=== PATIENT | female | born 1985 | race Caucasian/White ===

== ENCOUNTER 2020-03-13 11:39 | Emergency (ER) | payer BC ==
--- NOTE | 2020-03-13 11:43 | EDM.PDOC ---
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 She was previously seen at [facility] to confirm her and believes she is approximately 8 weeks with her last menstrual period being December 192019. She woke up this morning to use the bathroom around 2:30 AM and had noticed some blood in the toilet bowl. She continued to have some light spotting throughout the morning when she would wipe. She denies any recent pelvic activity. She states she does have chronic low back pain but denies any new or worsening back pain, abdominal pain or cramping. Patient denies any fever, chills, headache, change in vision, syncope or near syncope. Denies any chest pain, back pain, shortness of breath or cough. Denies any abdominal pain, nausea , vomiting, diarrhea, constipation or dysuria. Has not noted any blood in urine or stool. Patient has been eating and drinking appropriately. 3 para 1. Miscarriage at 6 weeks. Review of systems: As per history of present illness and below otherwise all systems reviewed and negative. Past medical history: As per history of present illness and as reviewed below otherwise noncontributory. Surgical history: As per history of present illness and as reviewed below otherwise noncontributory. Social history: See social history for further information Family history: As per history of present illness and as reviewed below otherwise noncontributory. Physical exam: General: Well-developed and well-nourished 34-year-old female. Alert and oriented. Nontoxic-appearing and in no acute distress. HEENT: Atraumatic, normocephalic, pupils equal and reactive bilaterally, negative for conjunctival pallor or scleral icterus, mucous membranes moist, TMs normal bilaterally, throat clear, neck supple, nontender, trachea midline. No drooling or trismus noted. No meningeal signs. No hot potato voice noted. Lungs: Clear to auscultation, breath sounds equal bilaterally, chest nontender. Heart: S1S2, regular rate and rhythm without overt murmur Abdomen: Soft, nondistended, nontender. Negative for masses or hepatosplenomegaly. Negative for costovertebral tenderness. Pelvis: Stable nontender. OBGYN: A pelvic exam was done with consent by patient and nursing editor city. Normal-appearing external genitalia. Speculum exam shows some old blood in the vaginal vault. Cervical office is closed. No cervical motion tenderness. Patient tolerated fair. Skin: Intact, warm, dry. No lesions or rashes noted. Extremities: Atraumatic, moves all extremities per self without difficulty or deficits, negative for cords or calf pain. Neurovascular unremarkable. Neuro: Awake, alert, oriented. Cranial nerves II through XII unremarkable. Cerebellum unremarkable. Motor and sensory unremarkable throughout. Exam nonfocal. Notes: Patient has an appointment [facility] on Sunday for her initial OBGYN appointment with first trimester labs. Quantitative hCG is 13, 912. Lab work is otherwise unremarkable. Ultrasound shows heterogeneous material within the endometrial complete, with no flow on color Doppler. A suspected failed IUP. Dr. Bentley Cao, OBGYN ring conductor for [facility], was consulted on this case. She states it is okay for the patient to keep her appointment on Sunday and they will reevaluate her at that time. All information was shared with the patient. We discussed signs and symptoms that would prompt her to return to the emergency room. Supportive care measures were reviewed and discussed. Voices understanding and is agreeable to plan of care. Denies any further questions or concerns at this time. Diagnostics: CBC, CMP, UA, hCG quant, AB/RH, transvaginal ultrasound Therapeutics: None Prescription: None Impression: Threatened Miscarriage Plan: 1. Please start and/or continue to take your vitamin with folic acid once daily. 2. Pelvic rest until cleared by your OBGYN (no tampons, sex, etc...) 3. Tylenol as needed for pain management. 4. Follow up with your DIESEL TECHNICIAN MECHANIC, Dr Cheng, on Sunday as you have directed. Return to the ED as needed and as discussed. Definitive disposition and diagnosis as appropriate pending reevaluation and review of above. 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 ED EXAM - Physical Exam Exam: See Below (See dictation) Course - Vital Signs Last Recorded V/S: Last Vital Signs Temp 97.8 F 03/13/20 13:13 Pulse 90 03/13/20 13:52 Resp 16 03/13/20 13:52 BP 129/76 03/13/20 13:52 Pulse Ox 99 03/13/20 13:52 - Orders/Labs/Meds Labs: Laboratory Tests 03/13/20 03/13/20 03/13/20 Range/Units 11:49 12:08 12:08 WBC 9.45 (4.0-11.0) K/uL RBC 4.69 (4.30-5.90) M/uL Hgb 13.5 (12.0-16.0) g/dL Hct 41.3 (36.0-46.0) % MCV 88.1 (80.0-98.0) fL MCH 28.8 (27.0-32.0) pg MCHC 32.7 (31.0-37.0) g/dL RDW Std Deviation 40.6 (28.0-62.0) fl RDW Coeff of Norman 13 (11.0-15.0) % Plt Count 264 (150-400) K/uL MPV 9.00 (7.40-12.00) fL Neut % (Auto) 62.0 (48.0-80.0) % Lymph % (Auto) 26.6 (16.0-40.0) % [place] % (Auto) 9.3 (0.0-15.0) % Eos % (Auto) 1.9 (0.0-7.0) % Baso % (Auto) 0.2 (0.0-1.5) % Neut # (Auto) 5.9 H (1.4-5.7) K/uL Lymph # (Auto) 2.5 H (0.6-2.4) K/uL [place] # (Auto) 0.9 H (0.0-0.8) K/uL Eos # (Auto) 0.2 (0.0-0.7) K/uL Baso # (Auto) 0.0 (0.0-0.1) K/uL Nucleated RBC % 0.0 /100WBC Nucleated RBCs # 0 K/uL Sodium (136-145) mmol/L Potassium (3.5-5.1) mmol/L Chloride (98-107) mmol/L Carbon Dioxide (21.0-32.0) mmol/L BUN (7.0-18.0) mg/dL Creatinine (0.6-1.0) mg/dL Est Cr Clr Drug Dosing mL/min Estimated GFR (MDRD) ml/min Glucose (74-106) mg/dL Calcium (8.5-10.1) mg/dL Total Bilirubin (0.2-1.0) mg/dL AST (15-37) IU/L ALT (14-63) IU/L Alkaline Phosphatase (46-116) U/L Total Protein (6.4-8.2) g/dL Albumin (3.4-5.0) g/dL Globulin (2.6-4.0) g/dL Albumin/Globulin Ratio (0.9-1.6) HCG, Quant mIU/mL Urine Color YELLOW Urine Appearance HAZY Urine pH 7.0 (5.0-8.0) Ur Specific [place] 1.020 (1.001-1.035) Urine Protein NEGATIVE (NEGATIVE) mg/dL Urine Glucose (UA) NEGATIVE (NEGATIVE) mg/dL Urine Ketones TRACE H (NEGATIVE) mg/dL Urine Occult Blood LARGE H (NEGATIVE) Urine Nitrite NEGATIVE (NEGATIVE) Urine Bilirubin NEGATIVE (NEGATIVE) Urine Urobilinogen 0.2 (<2.0) EU/dL Ur Leukocyte Esterase NEGATIVE (NEGATIVE) Urine RBC 2-3 (0-2/HPF) Urine WBC 0-1 (0-5/HPF) Ur Epithelial Cells FEW (NONE-FEW) Amorphous Sediment FEW (NEGATIVE) Urine Bacteria FEW (NEGATIVE) Urine Mucus FEW (NONE-MOD) Blood Type A POSITIVE 03/13/20 03/13/20 Range/Units 12:08 12:08 WBC (4.0-11.0) K/uL RBC (4.30-5.90) M/uL Hgb (12.0-16.0) g/dL Hct (36.0-46.0) % MCV (80.0-98.0) fL MCH (27.0-32.0) pg MCHC (31.0-37.0) g/dL RDW Std Deviation (28.0-62.0) fl RDW Coeff of Norman (11.0-15.0) % Plt Count (150-400) K/uL MPV (7.40-12.00) fL Neut % (Auto) (48.0-80.0) % Lymph % (Auto) (16.0-40.0) % [place] % (Auto) (0.0-15.0) % Eos % (Auto) (0.0-7.0) % Baso % (Auto) (0.0-1.5) % Neut # (Auto) (1.4-5.7) K/uL Lymph # (Auto) (0.6-2.4) K/uL [place] # (Auto) (0.0-0.8) K/uL Eos # (Auto) (0.0-0.7) K/uL Baso # (Auto) (0.0-0.1) K/uL Nucleated RBC % /100WBC Nucleated RBCs # K/uL Sodium 140 (136-145) mmol/L Potassium 4.1 (3.5-5.1) mmol/L Chloride 105 (98-107) mmol/L Carbon Dioxide 27.6 (21.0-32.0) mmol/L BUN 9 (7.0-18.0) mg/dL Creatinine 0.7 (0.6-1.0) mg/dL Est Cr Clr Drug Dosing 128.96 mL/min Estimated GFR (MDRD) > 60.0 ml/min Glucose 99 (74-106) mg/dL Calcium 8.8 (8.5-10.1) mg/dL Total Bilirubin 0.3 (0.2-1.0) mg/dL AST 11 L (15-37) IU/L ALT 21 (14-63) IU/L Alkaline Phosphatase 78 (46-116) U/L Total Protein 6.7 (6.4-8.2) g/dL Albumin 3.4 (3.4-5.0) g/dL Globulin 3.3 (2.6-4.0) g/dL Albumin/Globulin Ratio 1.0 (0.9-1.6) HCG, Quant 92656.0 mIU/mL Urine Color Urine Appearance Urine pH (5.0-8.0) Ur Specific [place] (1.001-1.035) Urine Protein (NEGATIVE) mg/dL Urine Glucose (UA) (NEGATIVE) mg/dL Urine Ketones (NEGATIVE) mg/dL Urine Occult Blood (NEGATIVE) Urine Nitrite (NEGATIVE) Urine Bilirubin (NEGATIVE) Urine Urobilinogen (<2.0) EU/dL Ur Leukocyte Esterase (NEGATIVE) Urine RBC (0-2/HPF) Urine WBC (0-5/HPF) Ur Epithelial Cells (NONE-FEW) Amorphous Sediment (NEGATIVE) Urine Bacteria (NEGATIVE) Urine Mucus (NONE-MOD) Blood Type Departure - Departure Time of Disposition: 14:03 Disposition: Home, Self-Care 01 Clinical Impression: Threatened miscarriage in early - Discharge Information Instructions: Threatened Miscarriage, [id number] Referrals: Georgette Cheng MD [Primary Care Provider] - Forms: ED Department Discharge Additional Instructions: The following information is given to patients seen in the emergency department who are being discharged to home. This information is to outline your options for follow-up care. We provide all patients seen in our emergency department with a follow-up referral. The need for follow-up, as well as the timing and circumstances, are variable depending upon the specifics of your emergency department visit. If you don't have a primary care physician on staff, we will provide you with a referral. We always advise you to contact your personal physician following an emergency department visit to inform them of the circumstance of the visit and for follow-up with them and/or the need for any referrals to a consulting specialist. The emergency department will also refer you to a specialist when appropriate. This referral assures that you have the opportunity for follow-up care with a specialist. All of these measure are taken in an effort to provide you with optimal care, which includes your follow-up. Under all circumstances we always encourage you to contact your private physician who remains a resource for coordinating your care. When calling for follow-up care, please make the office aware that this follow-up is from your recent emergency room visit. If for any reason you are refused follow-up, please contact the [facility] Emergency Department at and asked to speak to the emergency department charge nurse. [facility] [address] [place] [id number] [facility] [address] [place] [id number] 1. Please start and/or continue to take your vitamin with folic acid once daily. 2. Pelvic rest until cleared by your OBGYN (no tampons, sex, etc...) 3. Tylenol as needed for pain management. 4. Follow up with your DIESEL TECHNICIAN MECHANIC, Dr Cheng, on Sunday as you have directed. Return to the ED as needed and as discussed. Sepsis Event Note - Focused Exam Vital Signs: Vital Signs Temp Pulse Resp BP Pulse Ox 03/13/20 13:52 90 16 129/76 99 03/13/20 13:13 97.8 F 82 118/69 98 03/13/20 11:55 97.6 F 104 H 16 138/92 H 100 Date Exam was Performed: 03/13/20 Time Exam was Performed: 14:05
--- NOTE | 2020-03-13 12:12 | EDM.PDOC ---
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 Past medical history: As per history of present illness and as reviewed below otherwise noncontributory. Surgical history: As per history of present illness and as reviewed below otherwise noncontributory. Social history: See social history for further information Family history: As per history of present illness and as reviewed below otherwise noncontributory. Physical exam: General: HEENT: Atraumatic, normocephalic, pupils equal and reactive bilaterally, negative for conjunctival pallor or scleral icterus, mucous membranes moist, TMs normal bilaterally, throat clear, neck supple, nontender, trachea midline. No drooling or trismus noted. No meningeal signs. No hot potato voice noted. Lungs: Clear to auscultation, breath sounds equal bilaterally, chest nontender. Heart: S1S2, regular rate and rhythm without overt murmur Abdomen: Soft, nondistended, nontender. Negative for masses or hepatosplenomegaly. Negative for costovertebral tenderness. Pelvis: Stable nontender. Genitourinary: Deferred. Rectal: Deferred. Skin: Intact, warm, dry. No lesions or rashes noted. Extremities: Atraumatic, moves all extremities per self without difficulty or deficits, negative for cords or calf pain. Neurovascular unremarkable. Neuro: Awake, alert, oriented. Cranial nerves II through XII unremarkable. Cerebellum unremarkable. Motor and sensory unremarkable throughout. Exam nonfocal. Notes: Supportive care measures were reviewed and discussed. Voices understanding and is agreeable to plan of care. Denies any further questions or concerns at this time. Diagnostics: Therapeutics: Prescription: Impression: Plan: Definitive disposition and diagnosis as appropriate pending reevaluation and review of above. 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 History: Reports: Endometriosis, , Spontaneous Other CERTIFIED BREASTFEEDING EDUCATOR History: Musculoskeletal History: Reports: Back Pain, Chronic Neurological History: Reports: None Psychiatric History: Reports: ADD, Anxiety Endocrine/Metabolic History: Reports: None Hematologic History: Reports: None Immunologic History: Reports: None Oncologic (Cancer) History: Reports: None Dermatologic History: Reports: None - Infectious Disease History Infectious Disease History: Reports: Chicken Pox - Past Surgical History Head Surgeries/Procedures: Reports: None HEENT Surgical History: Reports: LASIK, Naso-Sinus Surgery, Oral Surgery Female Surgical History: Reports: Section, Other (See Below) Social & Family History - Family History Family Medical History: Noncontributory - Tobacco Use Smoking Status *Q: Current Every Day Smoker Years of Tobacco use: 14 Packs/Tins Daily: 0.1 - Caffeine Use Caffeine Use: Reports: None - Recreational Drug Use Recreational Drug Use: No ED ROS GENERAL - Review of Systems Review Of Systems: See Below (above) ED EXAM - Physical Exam Exam: See Below (above) Course - Vital Signs Text/Narrative:: Attending physician note I have seen and evaluated the patient with the advanced practice provider. Chief Complaint: Vaginal bleeding for trimester Brief HPI: Otherwise healthy 34-year-old female 3 para 1 presents with vaginal spotting. No significant cramping. Please see nurse practitioner / DISPATCHER SERVICE CHIEF Teena's note. ROS: Reviewed and agree Focused Exam: VITAL SIGNS: Reviewed. GENERAL: Awake, conversant, GCS 15, anxious about her condition but otherwise not in apparent distress HEAD: No visible signs of trauma EYES: Pupils equal, EOM grossly intact EARS: Hearing grossly intact. MOUTH: No visible lesions NECK: Appears supple CHEST: Breathing comfortably, clear lung sounds CARDIAC: Regular rhythm ABDOMEN: Soft, nontender, benign exam NEUROLOGIC EXAM: Awake and Alert, non-focal SKIN: No visible rashes EXTREMITIES: No deformities noted VASCULAR: Appears well perfused PROCEDURE NOTE: Limited OB / Pelvic Ultrasound (transabdominal) Indication: Confirm a live IUP All images obtained and evaluated by me. Findings: 1. Uterus Identified 2. No significant Free Fluid Noted 3. Indeterminate evaluation for live IUP. Suggestion of intrauterine is present but not clear. Interpretation: Indeterminate evaluation. Follow on transvaginal ultrasound for confirmation. No free fluid to suggest rupture. Signed by Rafael Figueroa M.D. Assessment & Plan: First trimester vaginal bleeding Labs, Rh, pelvic ultrasound Last Recorded V/S: Last Vital Signs Temp 97.8 F 03/13/20 13:13 Pulse 90 03/13/20 13:52 Resp 16 03/13/20 13:52 BP 129/76 03/13/20 13:52 Pulse Ox 99 03/13/20 13:52 - Orders/Labs/Meds Labs: Laboratory Tests 03/13/20 03/13/20 03/13/20 Range/Units 11:49 12:08 12:08 WBC 9.45 (4.0-11.0) K/uL RBC 4.69 (4.30-5.90) M/uL Hgb 13.5 (12.0-16.0) g/dL Hct 41.3 (36.0-46.0) % MCV 88.1 (80.0-98.0) fL MCH 28.8 (27.0-32.0) pg MCHC 32.7 (31.0-37.0) g/dL RDW Std Deviation 40.6 (28.0-62.0) fl RDW Coeff of Norman 13 (11.0-15.0) % Plt Count 264 (150-400) K/uL MPV 9.00 (7.40-12.00) fL Neut % (Auto) 62.0 (48.0-80.0) % Lymph % (Auto) 26.6 (16.0-40.0) % [place] % (Auto) 9.3 (0.0-15.0) % Eos % (Auto) 1.9 (0.0-7.0) % Baso % (Auto) 0.2 (0.0-1.5) % Neut # (Auto) 5.9 H (1.4-5.7) K/uL Lymph # (Auto) 2.5 H (0.6-2.4) K/uL [place] # (Auto) 0.9 H (0.0-0.8) K/uL Eos # (Auto) 0.2 (0.0-0.7) K/uL Baso # (Auto) 0.0 (0.0-0.1) K/uL Nucleated RBC % 0.0 /100WBC Nucleated RBCs # 0 K/uL Sodium (136-145) mmol/L Potassium (3.5-5.1) mmol/L Chloride (98-107) mmol/L Carbon Dioxide (21.0-32.0) mmol/L BUN (7.0-18.0) mg/dL Creatinine (0.6-1.0) mg/dL Est Cr Clr Drug Dosing mL/min Estimated GFR (MDRD) ml/min Glucose (74-106) mg/dL Calcium (8.5-10.1) mg/dL Total Bilirubin (0.2-1.0) mg/dL AST (15-37) IU/L ALT (14-63) IU/L Alkaline Phosphatase (46-116) U/L Total Protein (6.4-8.2) g/dL Albumin (3.4-5.0) g/dL Globulin (2.6-4.0) g/dL Albumin/Globulin Ratio (0.9-1.6) HCG, Quant mIU/mL Urine Color YELLOW Urine Appearance HAZY Urine pH 7.0 (5.0-8.0) Ur Specific [place] 1.020 (1.001-1.035) Urine Protein NEGATIVE (NEGATIVE) mg/dL Urine Glucose (UA) NEGATIVE (NEGATIVE) mg/dL Urine Ketones TRACE H (NEGATIVE) mg/dL Urine Occult Blood LARGE H (NEGATIVE) Urine Nitrite NEGATIVE (NEGATIVE) Urine Bilirubin NEGATIVE (NEGATIVE) Urine Urobilinogen 0.2 (<2.0) EU/dL Ur Leukocyte Esterase NEGATIVE (NEGATIVE) Urine RBC 2-3 (0-2/HPF) Urine WBC 0-1 (0-5/HPF) Ur Epithelial Cells FEW (NONE-FEW) Amorphous Sediment FEW (NEGATIVE) Urine Bacteria FEW (NEGATIVE) Urine Mucus FEW (NONE-MOD) Blood Type A POSITIVE 03/13/20 03/13/20 Range/Units 12:08 12:08 WBC (4.0-11.0) K/uL RBC (4.30-5.90) M/uL Hgb (12.0-16.0) g/dL Hct (36.0-46.0) % MCV (80.0-98.0) fL MCH (27.0-32.0) pg MCHC (31.0-37.0) g/dL RDW Std Deviation (28.0-62.0) fl RDW Coeff of Norman (11.0-15.0) % Plt Count (150-400) K/uL MPV (7.40-12.00) fL Neut % (Auto) (48.0-80.0) % Lymph % (Auto) (16.0-40.0) % [place] % (Auto) (0.0-15.0) % Eos % (Auto) (0.0-7.0) % Baso % (Auto) (0.0-1.5) % Neut # (Auto) (1.4-5.7) K/uL Lymph # (Auto) (0.6-2.4) K/uL [place] # (Auto) (0.0-0.8) K/uL Eos # (Auto) (0.0-0.7) K/uL Baso # (Auto) (0.0-0.1) K/uL Nucleated RBC % /100WBC Nucleated RBCs # K/uL Sodium 140 (136-145) mmol/L Potassium 4.1 (3.5-5.1) mmol/L Chloride 105 (98-107) mmol/L Carbon Dioxide 27.6 (21.0-32.0) mmol/L BUN 9 (7.0-18.0) mg/dL Creatinine 0.7 (0.6-1.0) mg/dL Est Cr Clr Drug Dosing 128.96 mL/min Estimated GFR (MDRD) > 60.0 ml/min Glucose 99 (74-106) mg/dL Calcium 8.8 (8.5-10.1) mg/dL Total Bilirubin 0.3 (0.2-1.0) mg/dL AST 11 L (15-37) IU/L ALT 21 (14-63) IU/L Alkaline Phosphatase 78 (46-116) U/L Total Protein 6.7 (6.4-8.2) g/dL Albumin 3.4 (3.4-5.0) g/dL Globulin 3.3 (2.6-4.0) g/dL Albumin/Globulin Ratio 1.0 (0.9-1.6) HCG, Quant 72240.0 mIU/mL Urine Color Urine Appearance Urine pH (5.0-8.0) Ur Specific [place] (1.001-1.035) Urine Protein (NEGATIVE) mg/dL Urine Glucose (UA) (NEGATIVE) mg/dL Urine Ketones (NEGATIVE) mg/dL Urine Occult Blood (NEGATIVE) Urine Nitrite (NEGATIVE) Urine Bilirubin (NEGATIVE) Urine Urobilinogen (<2.0) EU/dL Ur Leukocyte Esterase (NEGATIVE) Urine RBC (0-2/HPF) Urine WBC (0-5/HPF) Ur Epithelial Cells (NONE-FEW) Amorphous Sediment (NEGATIVE) Urine Bacteria (NEGATIVE) Urine Mucus (NONE-MOD) Blood Type Departure - Departure Time of Disposition: 14:32 Disposition: Home, Self-Care 01 Clinical Impression: Threatened miscarriage in early - Discharge Information Instructions: Threatened Miscarriage, [id number] Referrals: Georgette Cheng MD [Primary Care Provider] - Forms: ED Department Discharge Additional Instructions: The following information is given to patients seen in the emergency department who are being discharged to home. This information is to outline your options for follow-up care. We provide all patients seen in our emergency department with a follow-up referral. The need for follow-up, as well as the timing and circumstances, are variable depending upon the specifics of your emergency department visit. If you don't have a primary care physician on staff, we will provide you with a referral. We always advise you to contact your personal physician following an emergency department visit to inform them of the circumstance of the visit and for follow-up with them and/or the need for any referrals to a consulting specialist. The emergency department will also refer you to a specialist when appropriate. This referral assures that you have the opportunity for follow-up care with a specialist. All of these measure are taken in an effort to provide you with optimal care, which includes your follow-up. Under all circumstances we always encourage you to contact your private physician who remains a resource for coordinating your care. When calling for follow-up care, please make the office aware that this follow-up is from your recent emergency room visit. If for any reason you are refused follow-up, please contact the [facility] Emergency Department at and asked to speak to the emergency department charge nurse. [facility] [address], [place] [address] [facility] [address] [place] [address] 1. Please start and/or continue to take your vitamin with folic acid once daily. 2. Pelvic rest until cleared by your OBGYN (no tampons, sex, etc...) 3. Tylenol as needed for pain management. 4. Follow up with your CERTIFIED BREASTFEEDING EDUCATOR, Dr Cheng, on Sunday as you have directed. Return to the ED as needed and as discussed. Sepsis Event Note - Evaluation Sepsis Screening Result: No Definite Risk - Focused Exam Vital Signs: Vital Signs Temp Pulse Resp BP Pulse Ox 03/13/20 13:52 90 16 129/76 99 03/13/20 13:13 97.8 F 82 118/69 98 03/13/20 11:55 97.6 F 104 H 16 138/92 H 100 Date Exam was Performed: 03/13/20 Time Exam was Performed: 14:32
[2020-03-13 12:58] LABS: BLOOD UREA NITROGEN,BUN 9 mg/dL (7.0-18.0); CARBON DIOXIDE,CO2 27.6 mmol/L (21.0-32.0); CHLORIDE,CL 105 mmol/L (98-107); GLUCOSE RANDOM 99 mg/dL (74-106); POTASSIUM,K 4.1 mmol/L (3.5-5.1); SODIUM,NA 140 mmol/L (136-145)
[2020-03-13 13:52] VITALS: BP 129/76; PULSE 90
--- NOTE | 2020-03-13 13:53 | US ---
INDICATION: bleeding early OB HISTORY: Vaginal bleeding. COMPARISON: None. TECHNIQUE: Pelvic ultrasound. Endovaginal imaging of the pelvis was obtained to better evaluate the adnexa and endometrial complex. Color Doppler was performed to evaluate blood flow to the ovaries. FINDINGS: There is heterogeneous material within the endometrial complex, but there is no intrauterine gestational sac, yolk sac, or embryo. The findings may indicate a failed IUP, or less likely pseudo gestational sac from ectopic . There is no extra ovarian adnexal mass. The right ovary measures 3.6 x 1.7 x 1.8 cm. The left ovary measures 1.5 x 2.3 x 2.6 cm. There is no significant free fluid in the pelvis. There is no evidence for hemoperitoneum. IMPRESSION: 1. Heterogeneous material within the endometrial complex, with no flow on color Doppler. 2. A failed IUP is suspected. However, the sonographic findings suggest a of uncertain location. 3. Suggest correlation with serum beta HCG, and both sonographic and serologic follow-up are advised. 4. There is no extra ovarian adnexal mass, and no evidence for hemoperitoneum. Dictated by Delbert Contreras MD @ 03/13/2020 1:51:22 PM Dictated by: Delbert Contreras MD @ 03/13/2020 13:51:36 (Electronically Signed)
== END 2020-03-13 14:18 | disposition home or self-care (01) ==
LOC: MW.ED 11:39
DX: O20.0 Threatened abortion (principal); O99.341 Other mental disorders complicating pregnancy, first trimester; F98.8 Other specified behavioral and emotional disorders with onset usually occurring in childhood and adolescence; F17.210 Nicotine dependence, cigarettes, uncomplicated; O99.331 Smoking (tobacco) complicating pregnancy, first trimester; Z3A.08 8 weeks gestation of pregnancy
CPT/HCPCS: 36415; 76801; 76801-26; 80053; 81001; 84702; 85025; 86900; 86901; 99282; 99284-25

== ENCOUNTER 2020-03-19 11:52 | Day surgery (SDC) | payer BC ==
[2020-03-18 10:34] LABS: BLOOD UREA NITROGEN,BUN 7 mg/dL (7.0-18.0); CARBON DIOXIDE,CO2 24.7 mmol/L (21.0-32.0); CHLORIDE,CL 103 mmol/L (98-107); GLUCOSE RANDOM 101 mg/dL (74-106); SODIUM,NA 136 mmol/L (136-145)
[2020-03-19] MEDS ORDERED: fentaNYL 50 MCG/ML SDV IVPUSH ONE ×2 (12:23→14:39)
[2020-03-19] MEDS ORDERED: fentaNYL 100 MCG/2 ML SDV ONE ×3 (12:30→14:43)
--- NOTE | 2020-03-19 12:57 | PCM.PREANE ---
Preanesthetic Assessment - Anesthesia/Transfusion/Family Hx Anesthesia History: Prior Anesthesia Without Reaction Family History of Anesthesia Reaction: No Transfusion History: No Prior Transfusion(s) - Review of Systems General: No Symptoms Pulmonary: No Symptoms Cardiovascular: No Symptoms Gastrointestinal: No Symptoms Neurological: No Symptoms Other: Reports: None - Physical Assessment NPO Status Date: 03/18/20 Height: 5 ft 11 in Weight: 96.615 kg ASA Class: 5E Emergency Airway Class: Mallampati = 2 Dentition: Reports: Normal Dentition ROM/Head Extension: Full Lungs: Clear to Auscultation, Normal Respiratory Effort Cardiovascular: Regular Rate, Regular Rhythm - Lab Values: Laboratory Last Values WBC 7.72 K/uL (4.0-11.0) 03/18/20 09:45 RBC 4.71 M/uL (4.30-5.90) 03/18/20 09:45 Hgb 13.7 g/dL (12.0-16.0) 03/18/20 09:45 Hct 41.2 % (36.0-46.0) 03/18/20 09:45 MCV 87.5 fL (80.0-98.0) 03/18/20 09:45 MCH 29.1 pg (27.0-32.0) 03/18/20 09:45 MCHC 33.3 g/dL (31.0-37.0) 03/18/20 09:45 RDW Std Deviation 41.0 fl (28.0-62.0) 03/18/20 09:45 RDW Coeff of Norman 13 % (11.0-15.0) 03/18/20 09:45 Plt Count 275 K/uL (150-400) 03/18/20 09:45 MPV 9.00 fL (7.40-12.00) 03/18/20 09:45 Nucleated RBC % 0.0 /100WBC 03/18/20 09:45 Nucleated RBCs # 0 K/uL 03/18/20 09:45 Sodium 136 mmol/L (136-145) 03/18/20 09:45 Potassium 4.0 mmol/L (3.5-5.1) 03/18/20 09:45 Chloride 103 mmol/L (98-107) 03/18/20 09:45 Carbon Dioxide 24.7 mmol/L (21.0-32.0) 03/18/20 09:45 BUN 7 mg/dL (7.0-18.0) 03/18/20 09:45 Creatinine 0.7 mg/dL (0.6-1.0) 03/18/20 09:45 Est Cr Clr Drug Dosing 128.96 mL/min 03/18/20 09:45 Estimated GFR (MDRD) > 60.0 ml/min 03/18/20 09:45 Glucose 101 mg/dL (74-106) 03/18/20 09:45 Calcium 8.7 mg/dL (8.5-10.1) 03/18/20 09:45 Total Bilirubin 0.3 mg/dL (0.2-1.0) 03/18/20 09:45 AST 13 IU/L (15-37) L 03/18/20 09:45 ALT 24 IU/L (14-63) 03/18/20 09:45 Alkaline Phosphatase 74 U/L (46-116) 03/18/20 09:45 Total Protein 7.2 g/dL (6.4-8.2) 03/18/20 09:45 Albumin 3.5 g/dL (3.4-5.0) 03/18/20 09:45 Globulin 3.7 g/dL (2.6-4.0) 03/18/20 09:45 Albumin/Globulin Ratio 0.9 (0.9-1.6) 03/18/20 09:45 SARS Virus RNA (PCR) NEGATIVE (NEGATIVE) 03/18/20 09:49 Blood Type A POSITIVE 03/18/20 09:45 Antibody Screen NEGATIVE 03/18/20 09:45 - Allergies Allergies/Adverse Reactions: Allergies Allergy/AdvReac Type Severity Reaction Status Date / Time acetaminophen [From Percocet] Allergy Hives Verified 03/17/20 13:48 amoxicillin Allergy "does ot Verified 03/17/20 13:48 work for me" oxycodone [From Percocet] Allergy Hives Verified 03/17/20 13:48 - Blood Blood Available: No - Anesthesia Plan Pre-Op Medication Ordered: Other (fent 50) - Acknowledgements Anesthesia Type Planned: General Anesthesia Pt an Appropriate Candidate for the Planned Anesthesia: Yes Alternatives and Risks of Anesthesia Discussed w Pt/Guardian: Yes Pt/Guardian Understands and Agrees with Anesthesia Plan: Yes PreAnesthesia Questionnaire HEENT History: Reports: None Cardiovascular History: Reports: None Respiratory History: Reports: Asthma Gastrointestinal History: Reports: GERD Genitourinary History: Reports: None MANAGER EDUCATION History: Reports: Endometriosis, , Spontaneous Musculoskeletal History: Reports: Back Pain, Chronic, Fracture Other Musculoskeletal History: hx fx foot Neurological History: Reports: None Psychiatric History: Reports: ADD, Anxiety, Depression Endocrine/Metabolic History: Reports: None Hematologic History: Reports: None Immunologic History: Reports: None Oncologic (Cancer) History: Reports: None Dermatologic History: Reports: None - Infectious Disease History Infectious Disease History: Reports: Chicken Pox - Past Surgical History Head Surgeries/Procedures: Reports: None HEENT Surgical History: Reports: LASIK, Naso-Sinus Surgery, Oral Surgery Cardiovascular Surgical History: Reports: None Respiratory Surgical History: Reports: None GI Surgical History: Reports: None Female Surgical History: Reports: Section, Other (See Below) Other Female Surgeries/Procedures: Laparoscopy for endometriosis in 2006 Endocrine Surgical History: Reports: None Neurological Surgical History: Reports: None Musculoskeletal Surgical History: Reports: None Oncologic Surgical History: Reports: None Dermatological Surgical History: Reports: None - SUBSTANCE USE Smoking Status *Q: Current Every Day Smoker Tobacco Use Within Last Twelve Months: Cigarettes - HOME MEDS Home Medications: Home Meds Dextroamphetamine/Amphetamine [Adderall] 30 mg PO DAILY 03/13/20 [History] ALPRAZolam [Xanax] 0.5 mg PO ASDIRECTED PRN 03/17/20 [History] Budesonide/Formoterol Fumarate [Symbicort 160-4.5 Mcg Inhaler] 2 puff INH BID PRN 03/17/20 [History] Omeprazole 20 mg PO DAILY 03/17/20 [History] Pnv No.95/Ferrous Fum/Folic AC [ Vitamin Tablet] 1 tab PO DAILY [History] Sertraline HCl 50 mg PO DAILY 03/17/20 [History] - CURRENT (IN HOUSE) MEDS Current Meds: Current Medications Discontinued Medications Fentanyl (Fentanyl) 50 mcg IVPUSH ONETIME ONE Stop: 03/19/20 12:24 Fentanyl (Sublimaze) Confirm Administered Dose 100 mcg .ROUTE .STK-MED ONE Stop: 03/19/20 12:31
[2020-03-19] MEDS ORDERED: Propofol 200 MG/20 ML SDV ONE (13:10)
[2020-03-19] MEDS ORDERED: Midazolam 1 MG/ML 2 ML SDV ONE (13:11)
[2020-03-19] MEDS ORDERED: Lidocaine 2% 5 ML SDV ONE (13:12)
[2020-03-19] MEDS ORDERED: Ondansetron 4 MG/2 ML SDV ONE (13:12)
[2020-03-19] MEDS ORDERED: Ketorolac 30 MG/ML SDV ONE (13:12)
[2020-03-19] MEDS ORDERED: Glycopyrrolate 0.2 MG/ML SDV ONE (13:12)
[2020-03-19] MEDS ORDERED: Lactated Ringers 1,000 ML IV SCH (13:15)
[2020-03-19] MEDS ORDERED: Doxycycline 200 MG in Sodium Chloride 0.9% 250 ML IV SCH (14:00)
[2020-03-19] MEDS ORDERED: Ketorolac 15 MG/ML SDV IVPUSH ONE (14:23)
[2020-03-19] MEDS ORDERED: Acetaminophen/HYDROcodone 325-5 MG Tab PO PRN (14:23)
--- NOTE | 2020-03-19 15:19 | PCM.POSTAN ---
POST ANESTHESIA ASSESSMENT - MENTAL STATUS Mental Status: Alert, Oriented - VITAL SIGNS Vital Signs: Last Vital Signs Temp 98.1 F 03/19/20 14:28 Pulse 72 03/19/20 15:04 Resp 12 03/19/20 15:04 BP 95/52 L 03/19/20 15:04 Pulse Ox 98 03/19/20 15:04 - RESPIRATORY Respiratory Status: Respiratory Rate WNL, Airway Patent, O2 Saturation Stable - CARDIOVASCULAR CV Status: Pulse Rate WNL, Blood Pressure Stable - GASTROINTESTINAL GI Status: No Symptoms - POST OP HYDRATION Hydration Status: Adequate & Stable
--- NOTE | 2020-03-19 16:05 | PCM48HPAN ---
Post Anesthesia Note - EVALUATION WITHIN 48HRS OF ANESTHETIC Vital Signs in Normal Range: Yes Patient Participated in Evaluation: Yes Respiratory Function Stable: Yes Airway Patent: Yes Cardiovascular Function Stable: Yes Hydration Status Stable: Yes Pain Control Satisfactory: Yes Nausea and Vomiting Control Satisfactory: Yes Mental Status Recovered: Yes Vital Signs: Last Vital Signs Temp 98.1 F 03/19/20 14:28 Pulse 72 03/19/20 15:04 Resp 12 03/19/20 15:04 BP 95/52 L 03/19/20 15:04 Pulse Ox 98 03/19/20 15:04
[2020-03-19 16:45] VITALS: BP 102/60; PULSE 64
--- NOTE | 2020-03-19 17:33 | OR ---
SURGEON: Bentley Cao MD DATE OF PROCEDURE: 03/19/2020 INDICATION FOR PROCEDURE: A 34-year-old, G4, P 2-0-1-2, diagnosed with a missed . The patient is approximately 8 weeks' by last menstrual period. She started to have light bleeding and was seen in the emergency room, noted to have a gestational sac with heterogeneous debris, without yolk sac or pole. She was seen in the office and ultrasound was repeated, which confirmed the same findings, consistent with missed . The patient was counseled on options of expectant, medical or surgical management, and she desired to have surgical management. PREOPERATIVE DIAGNOSIS: Missed . POSTOPERATIVE DIAGNOSIS: Missed . PROCEDURE PERFORMED: Suction dilation and curettage. ANESTHESIA: General anesthesia. FINDINGS: Bimanual exam showed uterus approximately 8-week size, mobile, and anteverted. No adnexal masses. Cervix was normal appearing. Products of conception were noted to be removed from the uterine cavity. DESCRIPTION OF PROCEDURE: The patient was taken to the operating room where she was placed in dorsal lithotomy position. Properly prepped and draped in sterile fashion under general anesthesia. The bimanual exam revealed uterus to be 8-week size, anteverted, and mobile. The cervix was exposed with a vaginal speculum and the anterior lip of the cervix was grasped with a single-tooth tenaculum. The endocervical canal was progressively dilated with Hegar dilators up to 7cm. A 7 cm suction curette was connected to the suction under adequate pressure. It was placed in the uterus and the uterine cavity and advanced to the fundus. The suction curette was rotated slowly while extracting products of conception from the uterus. Two passes were made with the suction curettage. A gentle curettage was performed with a sharp curette. Two additional passes were made with the suction curettage under ultrasound guidance. No products of conception were noted to be left in the endometrial cavity. The uterus was firm and the bleeding was light. The tenaculum was removed from the anterior lip of the cervix. The cervix was hemostatic. She tolerated the procedure well. She was awoken from anesthesia and taken to the recovery room in stable condition. EVELYN / DENAE /[id number] JOSE FRANCISCO
== END 2020-03-19 16:10 | disposition home or self-care (01) ==
LOC: MW.SDS 11:52
PROVIDERS: ATTEND Obstetrics & Gynecology
DX: O02.1 Missed abortion (principal); J45.909 Unspecified asthma, uncomplicated; K21.9 Gastro-esophageal reflux disease without esophagitis; F41.9 Anxiety disorder, unspecified; F98.8 Other specified behavioral and emotional disorders with onset usually occurring in childhood and adolescence; F32.9 Major depressive disorder, single episode, unspecified; F17.210 Nicotine dependence, cigarettes, uncomplicated; Z88.0 Allergy status to penicillin; Z88.5 Allergy status to narcotic agent; Z88.8 Allergy status to other drugs, medicaments and biological substances; Z79.899 Other long term (current) drug therapy
CPT/HCPCS: 36415; 59820; 80053; 85027; 86850; 86900; 86901; 87635; J1885; J2001; J2250; J2405; J2704; J3010; J3490; J7120; U0002